=== PATIENT | female | born 1990 | race Caucasian/White ===

== ENCOUNTER 2019-10-20 07:32 | Inpatient (IN) ==
[2019-10-20] MEDS ORDERED: OXYTOCIN 30 UNITS/500 ML BAG IV PRN ×3 (08:16→22:35)
[2019-10-20] MEDS ORDERED: PENICILLIN G POTASSIUM 6 MU in DEXTROSE 5% 250 ML IV STA (08:24)
--- NOTE | 2019-10-20 08:39 | Obstetrical Progress Note ---
Date of Service October 20, 2019 Subjective Admit Note 29 F P1011 at term with SROM around 5 AM this AM confirmed with [facility]. Not activelyt eli. GBS is positive. Cervix is 1/50/- 3/vertex/posterior/firm. EFW 8.5 lbs. Will start Cytotec 50 mcg orally every 4 hours. Antibiotics for GBS positive. Results & Data Vital Signs (Past 12 Hours) Vital Signs Temp Pulse Resp BP 10/20/19 07:48 80 131/85 10/20/19 07:41 36.6 C 20
[2019-10-20 08:41] LABS: Hematocrit (blood only) 36.1 % (37-47); Hemoglobin 12.5 g/dL (12.0-16.0); Mean Corpuscular Hemoglobin 29.8 pg (25-34); Mean Corpuscular Volume 86.2 fL (80-100); Mean Platelet Volume 11.8 fL (7.4-10.4); Platelet Count 138 K/uL (130-400); RDW Coefficient of Variation 13.9 % (11.5-14.5); RDW Standard Deviation 43.5 fL (36.4-46.3); Red Blood Count 4.19 M/uL (4.2-5.4)
[2019-10-20] MEDS: LACTATED RINGER'S 1,000 ML IV PRN ×2 (08:48→18:24)
[2019-10-20 09:02] LABS: Mean Corpuscular Hgb Conc 34.6 g/dL (32-36)
[2019-10-20] MEDS: miSOPROStoL 50 MCG TAB PO SCH ×2 (09:35→18:00)
[2019-10-20] MEDS ORDERED: miSOPROStoL 50 MCG TAB PO SCH (12:00)
[2019-10-20] MEDS: PENICILLIN G POTASSIUM 3 MU in DEXTROSE 5% 100 ML IV PRN ×3 (12:40→20:56)
--- NOTE | 2019-10-20 16:05 | Obstetrical Progress Note ---
Date of Service October 20, 2019 Physical Exam Genitourinary: OB Exam Abdomen: + vertex and + estimated weight (8 to 8.5 lbs) Manual OB Exam: + cervical dilation 3 cm and 4 cm, + cervical effacement 60%, + station high and + amniotic fluid clear OB Exam Monitor Tr acing: + external FHT monitor used, + external uterine monitor used, + category I and + normal FHT variability cervix softening. Will augment contractions with Oxytocin. Results & Data Vital Signs (Past 12 Hours) Vital Signs Temp Pulse Resp BP 10/20/19 14:00 36.4 C L 10/20/19 12:20 73 126/80 10/20/19 12:02 36.8 C 20 10/20/19 10:00 36.6 C 20 10/20/19 07:49 36.4 C L 20 10/20/19 07:48 80 131/85 10/20/19 07:41 36.6 C 20
[2019-10-20] MEDS ORDERED: ePHEDrine sulfate 50 MG/ML AMP ONE (17:42)
[2019-10-20] MEDS ORDERED: BUPIVACAINE 0.25% 30 ML VIAL ONE (17:42)
[2019-10-20] MEDS ORDERED: fentaNYL citrate 100 MCG/2 ML VIAL ONE (17:42)
[2019-10-20] MEDS ORDERED: fentaNYL 2MCG/ML ROPIV 1.25MG/ML 100 ML BAG EPI ONE (17:43)
[2019-10-20] MEDS ORDERED: PROMETHAZINE HCL 6.25 MG in SODIUM CHLORIDE 0.9% 50 ML IV PRN (18:39)
[2019-10-20] MEDS ORDERED: ePHEDrine sulfate 50 MG/ML AMP IV PRN (18:39)
[2019-10-20] MEDS ORDERED: NALOXONE HCL 1 MG in SODIUM CHLORIDE 0.9% 1000ML 1,000 ML IV PRN (18:39)
[2019-10-20] MEDS ORDERED: NALOXONE HCL 0.4 MG/1 ML VIAL/CARP IV PRN (18:39)
[2019-10-20] MEDS ORDERED: DiphenhydrAMINE HCL 50 MG/ML VIAL IV PRN (18:39)
[2019-10-20] MEDS ORDERED: NALBUPHINE HCL INJ 10 MG/ML AMP IV PRN (18:39)
[2019-10-20] MEDS ORDERED: fentaNYL 2MCG/ML ROPIV 1.25MG/ML 100 ML BAG EPI PRN (18:39)
[2019-10-20] MEDS ORDERED: ONDANSETRON INJ 2 MG/ML 2 ML VIAL IV PRN (18:49)
[2019-10-20] MEDS ORDERED: METHYLERGONOVINE MALEATE 0.2 MG/ML AMP ONE (22:26)
[2019-10-20] MEDS ORDERED: DIPHTHERIA/TETANUS/PERTUSSIS 0.5 ML SYR/VIAL IM ONE (22:35)
[2019-10-20] MEDS ORDERED: SUPERCREAM 0.870% 15 GM JAR EXT PRN (22:35)
[2019-10-20] MEDS ORDERED: ACETAMINOPHEN 325 MG TAB PO PRN (22:35)
[2019-10-20] MEDS ORDERED: HYDROCORTISONE ACETATE 25 MG SUPP PR PRN (22:35)
[2019-10-20] MEDS ORDERED: BENZOCAINE 20% AER SPR 82.5 GM CAN EXT PRN (22:35)
--- NOTE | 2019-10-20 22:44 | Delivery Summary ---
Vaginal Delivery Summary Date of Service October 20, 2019 Vaginal Delivery Summary Delivery Note live male over intact perineum GARLADN with nuchal cord x1 and arm reduced at delivery followed by delayed cord clamping. Apgars 8/8 weight pending. Cord blood obtained and placenta delivered spontaneously and intact. No tears. EBL 250 ml. Final sponge and instrument count are correct. Mom and baby stable.
--- NOTE | 2019-10-20 22:45 | Anesthesia Procedure Note ---
Date of Service October 20, 2019 Anesthesia Post Epidural Note Vital Signs Vital Signs: Temp Pulse Resp BP Pulse Ox 36.4 C L 90 18 135/67 94 10/20/19 19:07 10/20/19 22:30 10/20/19 19:07 10/20/19 22:30 10/20/19 22:18 Pain Intensity Bilateral Abdomen: Pain Intensity: 7 Notes Mental Status: alert / awake / arousable Nausea / Vomiting: adequately controlled Pain: adequately controlled Airway Patency, RR, SpO2: stable & adequate BP & HR: stable & adequate Hydration State: stable & adequate Neuraxial Anesthesia: was administered and sensory block is resolving Anesthetic Complications: no major complications apparent and Pt Satisfied with anesthetic care Epidural: Removed without complications and With tip intact
[2019-10-20] MEDS ORDERED: METHYLERGONOVINE MALEATE 0.2 MG/ML AMP IM STA (22:49)
[2019-10-21 07:25] LABS: Hematocrit (blood only) 33.6 % (37-47); Hemoglobin 11.6 g/dL (12.0-16.0); Mean Corpuscular Hemoglobin 29.7 pg (25-34); Mean Corpuscular Hgb Conc 34.5 g/dL (32-36); Mean Corpuscular Volume 86.2 fL (80-100); Mean Platelet Volume 11.6 fL (7.4-10.4); Platelet Count 150 K/uL (130-400); RDW Standard Deviation 43.8 fL (36.4-46.3); White Blood Count 15.42 K/uL (4.8-10.8)
[2019-10-21] MEDS: FERROUS SULFATE 325 MG TAB PO SCH (08:05)
[2019-10-21] MEDS: IBUPROFEN 600 MG TAB PO PRN ×2 (08:05→18:39)
[2019-10-21] MEDS: DOCUSATE SODIUM 100 MG CAP PO SCH ×2 (08:05→20:17)
[2019-10-21] MEDS: PRENATAL VITAMIN 1 TAB PO SCH (08:06)
--- NOTE | 2019-10-21 08:52 | Obstetrical Progress Note ---
Date of Service October 21, 2019 Assessment & Plan (1) normal course: PPD #1 pt doing well continue day #1 care Subjective Ambulation: ambulating normally Voiding: no voiding problems Passing Gas:: Yes Diet Tolerance:: regular diet Lochia:: Small Feeding Type:: breast feeding Review of Systems All systems reviewed & are unremarkable except as noted in HPI & below Physical Exam Constitutional WD/WN, vitals as above well developed and well nourished Eyes PERRL, conjunctivae normal, anicteric sclerae Neck trachea midline, no thyromegaly Respiratory normal respiratory effort, lungs clear to auscultation Auscultation: no crackles, no rales and no wheezes Cardiovascular RRR, no murmur, no edema Gastrointestinal (Abdomen) normal bowel sounds, soft, nontender, no hepatosplenomegaly Uterus is below umbilicus Musculoskeletal no cyanosis or clubbing, extremities motor strength 5/5 Skin no rashes, warm and dry Neurologic patellar DTR's 2+ bilat, sensation intact Psychiatric A+Ox3, euthymic affect Genitourinary normal external appearance Results & Data Vital Signs (Past 12 Hours) Vital Signs Temp Pulse Pulse Resp BP BP Pulse Ox 10/21/19 03:40 36.6 C 67 18 135/82 98 10/21/19 01:00 36.9 C 61 18 130/86 99 10/21/19 00:30 36.9 C 61 18 138/86 10/21/19 00:15 78 138/89 10/21/19 00:00 77 18 135/82 10/20/19 23:45 67 133/81 10/20/19 23:30 75 18 147/97 H 10/20/19 23:15 72 18 141/73 H 10/20/19 23:00 36.9 C 71 18 141/83 H 10/20/19 22:45 80 18 126/68 10/20/19 22:30 90 18 135/67 10/20/19 22:18 117 H 94 10/20/19 22:16 220 H 91 10/20/19 22:13 125 H 94 10/20/19 22:11 120 H 77 L 10/20/19 22:06 132 H 96 10/20/19 22:01 126 H 96 10/20/19 22:00 130 H 116/72 10/20/19 21:57 118 H 87 L 10/20/19 21:56 119 H 97 10/20/19 21:51 130 H 98 10/20/19 21:50 115 H 92 10/20/19 21:45 120 H 117/76 100 10/20/19 21:40 89 100 10/20/19 21:39 82 91 10/20/19 21:35 93 H 100 10/20/19 21:31 85 114/70 10/20/19 21:30 85 99 10/20/19 21:25 80 98 10/20/19 21:20 87 98 10/20/19 21:15 80 125/81 98 10/20/19 21:10 65 99 10/20/19 21:05 69 99 10/20/19 21:00 74 125/75 96 10/20/19 20:55 80 98
[2019-10-21] MEDS ORDERED: ASPIRIN 81 MG ECTAB PO SCH (09:00)
[2019-10-21] MEDS ORDERED: NON-FORMULARY MEDICATION (Prenatal Vit-Iron Fum-Folic Ac [Prenatal Vitamin] 1 TAB) PO SCH (09:00)
[2019-10-21] MEDS ORDERED: bisacodyL 5 MG TABEC PO SCH (20:00)
[2019-10-22] MEDS: PRENATAL VITAMIN 1 TAB PO SCH (07:52)
[2019-10-22] MEDS: DOCUSATE SODIUM 100 MG CAP PO SCH (07:52)
[2019-10-22] MEDS: FERROUS SULFATE 325 MG TAB PO SCH (07:53)
--- NOTE | 2019-10-22 08:19 | Obstetrical Progress Note ---
Date of Service October 22, 2019 Physical Exam Constitutional: WD/WN, vitals as above comfortable fundus firm abdomen soft neg edema neg [facility] for discharge today Results & Data Vital Signs (Past 12 Hours) Vital Signs Temp Pulse Resp BP Pulse Ox 10/22/19 07:58 36.6 C 80 18 127/82 98 10/21/19 23:25 36.7 C 69 16 115/72 Diagnostic Findings Laboratory Results - last 72 hr 10/20/19 10/20/19 10/21/19 08:23 Unknown 06:42 WBC 11.40 H RBC 4.19 L Hgb 12.5 Hct 36.1 L MCV 86.2 MCH 29.8 MCHC 34.6 RDW Std Deviation 43.5 RDW Coeff of Hernandez 13.9 Plt Count 138 MPV 11.8 H Amniotic Protein POS Blood Type O Negative Antibody Screen NEGATIVE Screen Negative 10/21/19 10/22/19 06:42 06:02 WBC 15.42 H RBC 3.90 L Hgb 11.6 L 11.0 L Hct 33.6 L 32.0 L MCV 86.2 MCH 29.7 MCHC 34.5 RDW Std Deviation 43.8 RDW Coeff of Hernandez 14.0 Plt Count 150 MPV 11.6 H Amniotic Protein Blood Type Antibody Screen Screen
[2019-10-22] MEDS ORDERED: bisacodyL 10 MG SUPP PR PRN (09:00)
== END 2019-10-22 13:27 | disposition home or self-care (01) | DRG 807 ==
LOC: OPB 07:32 → 4S1 07:39 → 4S2 10-21 01:34